=== PATIENT | male | born 1990 | race Caucasian/White ===

== ENCOUNTER 2020-01-02 07:35 | Inpatient (IN) | payer MEDICAID ==
[~2020-01-02] VITALS: Ht 157.5 cm; Wt 114.4 kg
[2020-01-02] MEDS ORDERED: LORazepam 1 MG TABLET PO ONE (08:15)
[2020-01-02 08:31] LABS: BASOPHILS % (AUTO) 0.7 % (0.0-2.0); EOSINOPHILS % (AUTO) 2.5 % (1.0-6.0); HEMATOCRIT 41.3 % (41-53); HEMOGLOBIN 14.3 g/dL (13.5-17.5); LYMPHOCYTES # (AUTO) 1.9 K/uL (1.0-4.8); LYMPHOCYTES % (AUTO) 24.1 % (22.0-44.0); MEAN CORPUSCULAR HGB CONC 34.7 G/dL (31.0-37.0); MEAN CORPUSCULAR VOLUME 89 fL (80-100); MONOCYTES # (AUTO) 0.8 K/uL (0.1-1.0); MONOCYTES % (AUTO) 9.8 % (2.0-9.0); NEUTROPHILS # (AUTO) 4.9 K/uL (1.8-7.7); NEUTROPHILS % (AUTO) 62.9 % (40.0-70.0); PLATELET COUNT (AUTO) 210 K/uL (150-450); RED BLOOD CELL COUNT(AUTO) 4.61 MIL/uL (4.50-5.90); RED CELL DISTRIBUTION WIDTH 13.4 % (11.5-14.5)
[2020-01-02 08:48] LABS: ANION GAP 11 mmol/L (8-16); CALCIUM, TOTAL 8.9 mg/dL (8.8-10.5); CARBON DIOXIDE 22 mmol/L (22-29); CHLORIDE 105 mmol/L (98-107); CREATININE 1.13 mg/dL (0.60-1.30); GLOMERULAR FILTR. RATE CALC > 60 mL/min (>60); GLUCOSE,RANDOM 90 mg/dL (70-110); POTASSIUM 3.8 mmol/L (3.5-5.1); SODIUM SERUM 138 mmol/L (136-145); UREA NITROGEN, BLOOD 17 mg/dL (7-18)
[2020-01-02 08:54] LABS: ALANINE AMINOTRANSFERASE 40 U/L (12-78); ALKALINE PHOSPHATASE 86 U/L (46-116); ASPARTATE AMINOTRANSFERASE 34 U/L (15-37); BILIRUBIN,TOTAL 0.8 mg/dL (0.1-1.0)
[2020-01-02 11:20] LABS: COVID AG,FIA SOURCE NASOPHARYNGEAL
[2020-01-02] MEDS ORDERED: MAG HYDROX/AL HYDROX/SIMETH ES 30 ML SUSPENSION UDCUP PO PRN (12:15)
[2020-01-02] MEDS ORDERED: PROMETHAZINE HCL 25 MG TABLET PO PRN (12:15)
[2020-01-02] MEDS ORDERED: ZOLPIDEM TARTRATE 10 MG TABLET PO PRN (12:15)
[2020-01-02] MEDS ORDERED: HydrOXYzine PAMOATE 50 MG CAPSULE PO PRN (12:15)
[2020-01-02] MEDS ORDERED: LOPERAMIDE HCL 2 MG CAPSULE PO PRN (12:15)
[2020-01-02] MEDS ORDERED: LORazepam 2 MG TABLET PO PRN (12:15)
[2020-01-02] MEDS ORDERED: ACETAMINOPHEN 325 MG TABLET PO PRN (12:15)
[2020-01-02] MEDS ORDERED: GuaiFENesin/D-METHORPHAN [SUGAR-FREE] 200-20MG/10 ML SYRUP UDCUP PO PRN (12:15)
[2020-01-02] MEDS ORDERED: MAGNESIUM HYDROXIDE SUSPENSION 30 ML UDCUP PO PRN (12:15)
[2020-01-02] MEDS ORDERED: OLANZapine 5 MG RAPDIS TABLET PO PRN (12:15)
[2020-01-02] MEDS ORDERED: TUBERCULIN, PURIFIED PROTEIN DERIVATIVE 5 TU/0.1 ML SYRINGE ID ONE (12:15)
[2020-01-02 15:15] VITALS: BP 103/79
[2020-01-02 15:22] VITALS: BP 103/79
[2020-01-02] MEDS: THIAMINE 100 MG TABLET PO SCH (16:40)
[2020-01-02] MEDS ORDERED: OLANZapine 5 MG RAPDIS TABLET PO SCH (21:00)
[2020-01-03 06:48] LABS: HEMOGLOBIN A1C 5.1 % (3.8-5.6)
[2020-01-03 07:15] LABS: CHOL/HDL RATIO 2.3 (4.2-7.3); FREE T4 (FREE THYROXINE) 1.14 ng/dL (0.76-1.46); THYROID STIMULATING HORMONE 1.09 uIU/mL (0.36-3.74)
[2020-01-03] MEDS: OMEGA-3/DHA/EPA/FISH OIL 1,000 MG CAPSULE PO SCH (09:28)
[2020-01-03] MEDS: MULTIVITAMINS WITH MINERALS, THERAPEUTIC TABLET PO SCH (09:28)
[2020-01-03] MEDS: FLUoxetine HCL 20 MG CAPSULE PO SCH (09:28)
[2020-01-03] MEDS: THIAMINE 100 MG TABLET PO SCH ×2 (09:29→16:21)
[2020-01-03] MEDS: NALTREXONE HCL 50 MG TABLET PO SCH (09:29)
[2020-01-03] MEDS: NICOTINE 21 MG/24 HOUR PATCH TD SCH (09:30)
[2020-01-03] MEDS: FOLIC ACID 1 MG TABLET PO SCH (09:32)
[2020-01-03 09:35] VITALS: BP 117/73
[2020-01-03 16:43] VITALS: BP 132/82
[2020-01-03] MEDS: OLANZapine 10 MG RAPDIS TABLET PO SCH (20:51)
[2020-01-04] MEDS: FOLIC ACID 1 MG TABLET PO SCH (08:56)
[2020-01-04] MEDS: MULTIVITAMINS WITH MINERALS, THERAPEUTIC TABLET PO SCH (08:56)
[2020-01-04] MEDS: OMEGA-3/DHA/EPA/FISH OIL 1,000 MG CAPSULE PO SCH (08:56)
[2020-01-04] MEDS: NALTREXONE HCL 50 MG TABLET PO SCH (08:56)
[2020-01-04] MEDS: FLUoxetine HCL 20 MG CAPSULE PO SCH (08:56)
[2020-01-04] MEDS: THIAMINE 100 MG TABLET PO SCH ×2 (08:56→16:52)
[2020-01-04] MEDS: NICOTINE 21 MG/24 HOUR PATCH TD SCH (09:01)
[2020-01-04 10:24] VITALS: BP 138/63
[2020-01-04 16:00] VITALS: BP 120/69
[2020-01-04] MEDS: MIRTAZAPINE 15 MG TABLET PO SCH (20:33)
[2020-01-04] MEDS: OLANZapine 10 MG RAPDIS TABLET PO SCH (20:33)
[2020-01-05 08:00] VITALS: BP 110/65
[2020-01-05] MEDS: FOLIC ACID 1 MG TABLET PO SCH (08:37)
[2020-01-05] MEDS: NICOTINE 21 MG/24 HOUR PATCH TD SCH (08:37)
[2020-01-05] MEDS: OMEGA-3/DHA/EPA/FISH OIL 1,000 MG CAPSULE PO SCH (08:38)
[2020-01-05] MEDS: NALTREXONE HCL 50 MG TABLET PO SCH (08:38)
[2020-01-05] MEDS: MULTIVITAMINS WITH MINERALS, THERAPEUTIC TABLET PO SCH (08:38)
[2020-01-05] MEDS: FLUoxetine HCL 20 MG CAPSULE PO SCH (08:38)
[2020-01-05] MEDS: THIAMINE 100 MG TABLET PO SCH ×2 (08:38→16:56)
[2020-01-05 16:43] VITALS: BP 118/63
[2020-01-05] MEDS: MIRTAZAPINE 15 MG TABLET PO SCH (20:34)
[2020-01-05] MEDS: OLANZapine 10 MG RAPDIS TABLET PO SCH (20:37)
[2020-01-06 09:00] VITALS: BP 159/95
[2020-01-06] MEDS: OMEGA-3/DHA/EPA/FISH OIL 1,000 MG CAPSULE PO SCH (09:41)
[2020-01-06] MEDS: FOLIC ACID 1 MG TABLET PO SCH (09:41)
[2020-01-06] MEDS: THIAMINE 100 MG TABLET PO SCH ×2 (09:41→17:22)
[2020-01-06] MEDS: MULTIVITAMINS WITH MINERALS, THERAPEUTIC TABLET PO SCH (09:41)
[2020-01-06] MEDS: FLUoxetine HCL 20 MG CAPSULE PO SCH (09:41)
[2020-01-06] MEDS: NALTREXONE HCL 50 MG TABLET PO SCH (09:41)
[2020-01-06] MEDS: NICOTINE 21 MG/24 HOUR PATCH TD SCH (09:50)
[2020-01-06 16:30] VITALS: BP 117/61
[2020-01-06] MEDS: OLANZapine 10 MG RAPDIS TABLET PO SCH (20:35)
[2020-01-06] MEDS: MIRTAZAPINE 30 MG TABLET PO SCH (20:35)
[2020-01-07] MEDS: FLUoxetine HCL 20 MG CAPSULE PO SCH (09:36)
[2020-01-07] MEDS: OMEGA-3/DHA/EPA/FISH OIL 1,000 MG CAPSULE PO SCH (09:36)
[2020-01-07] MEDS: MULTIVITAMINS WITH MINERALS, THERAPEUTIC TABLET PO SCH (09:36)
[2020-01-07] MEDS: NALTREXONE HCL 50 MG TABLET PO SCH (09:36)
[2020-01-07] MEDS: FOLIC ACID 1 MG TABLET PO SCH (09:36)
[2020-01-07] MEDS: THIAMINE 100 MG TABLET PO SCH ×2 (09:37→17:27)
[2020-01-07] MEDS: NICOTINE 21 MG/24 HOUR PATCH TD SCH (09:39)
[2020-01-07 09:52] VITALS: BP 143/76
[2020-01-07 16:22] VITALS: BP 115/83
[2020-01-07] MEDS: MIRTAZAPINE 30 MG TABLET PO SCH (20:55)
[2020-01-07] MEDS: OLANZapine 10 MG RAPDIS TABLET PO SCH (20:56)
[2020-01-08 08:25] VITALS: BP 140/96
[2020-01-08] MEDS: MULTIVITAMINS WITH MINERALS, THERAPEUTIC TABLET PO SCH (09:06)
[2020-01-08] MEDS: THIAMINE 100 MG TABLET PO SCH ×2 (09:06→16:36)
[2020-01-08] MEDS: OMEGA-3/DHA/EPA/FISH OIL 1,000 MG CAPSULE PO SCH (09:07)
[2020-01-08] MEDS: FLUoxetine HCL 20 MG CAPSULE PO SCH (09:07)
[2020-01-08] MEDS: NALTREXONE HCL 50 MG TABLET PO SCH (09:07)
[2020-01-08] MEDS: FOLIC ACID 1 MG TABLET PO SCH (09:07)
[2020-01-08] MEDS: NICOTINE 21 MG/24 HOUR PATCH TD SCH (09:08)
[2020-01-08 16:00] VITALS: BP 117/65
[2020-01-08] MEDS: MIRTAZAPINE 30 MG TABLET PO SCH (20:12)
[2020-01-08] MEDS: OLANZapine 10 MG RAPDIS TABLET PO SCH (20:14)
[2020-01-09] MEDS: NICOTINE 21 MG/24 HOUR PATCH TD SCH (09:19)
[2020-01-09] MEDS: MULTIVITAMINS WITH MINERALS, THERAPEUTIC TABLET PO SCH (09:19)
[2020-01-09] MEDS: FOLIC ACID 1 MG TABLET PO SCH (09:19)
[2020-01-09] MEDS: NALTREXONE HCL 50 MG TABLET PO SCH (09:19)
[2020-01-09] MEDS: THIAMINE 100 MG TABLET PO SCH ×2 (09:19→16:39)
[2020-01-09] MEDS: FLUoxetine HCL 20 MG CAPSULE PO SCH (09:19)
[2020-01-09] MEDS: OMEGA-3/DHA/EPA/FISH OIL 1,000 MG CAPSULE PO SCH (09:19)
[2020-01-09 16:00] VITALS: BP 120/63
[2020-01-09] MEDS ORDERED: MIRT30 PO (19:10)
[2020-01-09] MEDS ORDERED: OLAN10TA22 PO (19:10)
[2020-01-09] MEDS ORDERED: FLUO-191 PO (19:10)
[2020-01-09] MEDS ORDERED: OMEG-135 PO (19:10)
[2020-01-09] MEDS ORDERED: NALT50TA PO (19:10)
[2020-01-09] MEDS: OLANZapine 10 MG RAPDIS TABLET PO SCH (20:18)
[2020-01-09] MEDS: MIRTAZAPINE 30 MG TABLET PO SCH (20:18)
[2020-01-10 08:00] VITALS: BP 146/101
[2020-01-10] MEDS: FOLIC ACID 1 MG TABLET PO SCH (09:24)
[2020-01-10] MEDS: NALTREXONE HCL 50 MG TABLET PO SCH (09:24)
[2020-01-10] MEDS: MULTIVITAMINS WITH MINERALS, THERAPEUTIC TABLET PO SCH (09:24)
[2020-01-10] MEDS: OMEGA-3/DHA/EPA/FISH OIL 1,000 MG CAPSULE PO SCH (09:24)
[2020-01-10] MEDS: NICOTINE 21 MG/24 HOUR PATCH TD SCH (09:25)
[2020-01-10] MEDS: THIAMINE 100 MG TABLET PO SCH (09:25)
[2020-01-10] MEDS: FLUoxetine HCL 20 MG CAPSULE PO SCH (09:25)
== END 2020-01-10 16:55 | disposition home or self-care (01) | DRG 750 ==
LOC: EMS 07:41 → 3EI 14:39
PROVIDERS: ADMIT Psychiatry & Neurology Psychiatry; ATTEND Psychiatry & Neurology Psychiatry
DX: F25.9 Schizoaffective disorder, unspecified (principal); F17.210 Nicotine dependence, cigarettes, uncomplicated; F41.9 Anxiety disorder, unspecified; F64.9 Gender identity disorder, unspecified; F90.9 Attention-deficit hyperactivity disorder, unspecified type; R45.851 Suicidal ideations; Z59.0 Homelessness; Z91.010 Allergy to peanuts; Z03.818 Encounter for observation for suspected exposure to other biological agents ruled out
CPT/HCPCS: 83036; 84439; 84443; 86592; 87081; 87426; G0480